=== PATIENT | male | born 1960 | race African-American/Black ===

== ENCOUNTER 2022-07-23 10:55 | Emergency (ER) | payer MEDICARE, OTHER ==
[~2022-07-23] VITALS: Ht 185.4 cm; Wt 81.8 kg
[2022-07-23] MEDS ORDERED: HYDR-4723 PO (11:05)
[2022-07-23] MEDS ORDERED: HYDR25TA2 PO (11:05)
[2022-07-23] MEDS ORDERED: LISI-893 PO (11:05)
[2022-07-23] MEDS ORDERED: METO25 PO (11:05)
[2022-07-23] MEDS ORDERED: ASPI-1450 PO (11:05)
[2022-07-23] MEDS ORDERED: AMLO-257 PO (11:05)
[2022-07-23 11:20] VITALS: BP 165/90
[2022-07-23] MEDS ORDERED: CYCLOBENZAPRINE HCL 10 MG TABLET PO ONE (11:45)
[2022-07-23] MEDS ORDERED: KETOROLAC TROMETHAMINE 60 MG/2 ML VIAL IM ONE (11:45)
== END 2022-07-23 12:14 | disposition home or self-care (01) ==
LOC: EMS 10:59
DX: G89.29 Other chronic pain (principal); M54.50 Low back pain, unspecified; I10 Essential (primary) hypertension; F12.90 Cannabis use, unspecified, uncomplicated
CPT/HCPCS: 99283; 96372; J1885